=== PATIENT | male | born 1995 | race Caucasian/White ===

== ENCOUNTER 2022-07-28 02:03 | Emergency (ER) | payer SELFPAY ==
[2022-07-28] MEDS ORDERED: SODIUM CHLORIDE 0.9% 1,000 ML IV STA (02:30)
--- NOTE | 2022-07-28 02:32 | ED Physician Documentation ---
PD HPI BACK PAIN - Stated complaint Stated Complaint: KIDNEY STONE - Chief complaint Chief Complaint: Abd Pain - History obtained from History obtained from: Patient - History of Present Illness Timing - onset: Enter time (22:00), Today Timing - details: Abrupt onset Pain level max: 8 Pain level now: 2 Location: Right Quality: Pain, Similar to prior episodes Associated symptoms: No: Fever, Weakness, Numbness Improves with: Nothing Worsened by: Other (no exacerbating factors) Similar symptoms before: Diagnosis (similar to previous episode of renal colic (approximatey 1 year ago)) Recently seen: Not recently seen - Additional information Additional information: c/o sudden onset right flank and right upper paralumbar pain , onset at approximately 10 PM while at rest in hotel (visiting from [place]). Pain waxes and wanes, with n/v when pain is most intense. Pain has improved significantly prior to this evaluation (spontaneously). He feels this is very similar to renal colic he had approximately 1 year ago; he did not have a procedure for that episode. Review of Systems Constitutional: denies: Fever GI: reports: Nausea, Vomiting. denies: Abdominal Pain : denies: Dysuria, Frequency, Hematuria Skin: denies: Rash Musculoskeletal: reports: Back pain PD PAST MEDICAL HISTORY - Past Medical History Past Medical History: Yes : Kidney stones - Present Medications Home Medications: Ambulatory Orders Medication Instructions Recorded Confirmed Ondansetron Odt [Zofran] 4 mg TL Q6H PRN #14 tablet 07/28/22 Oxycodone HCl/Acetaminophen 1 - 2 each PO Q6H PRN #20 tablet 07/28/22 [Percocet 5-325 mg Tablet] Tamsulosin [Flomax] 0.4 mg PO DAILY #10 cap 07/28/22 - Allergies Allergies/Adverse Reactions: Allergies Allergy/AdvReac Type Severity Reaction Status Date / Time No Known Drug Allergies Allergy Verified 07/28/22 02:14 PD ED PE NORMAL - Vitals Vital signs reviewed: Yes - General General: Alert and oriented X 3, No acute distress, Well developed/nourished - Cardiac Cardiac: RRR, No murmur - Respiratory Respiratory: No respiratory distress, Clear bilaterally - Abdomen Abdomen: Soft, Non tender, Non distended - Back Back: No CVA TTP - Derm Derm: Normal color, Warm and dry, No rash Results - Vitals Vitals: Vital Signs - 24 hr 07/28/22 07/28/22 07/28/22 03:35 03:40 04:34 Temperature 36.5 C Heart Rate 56 L 56 L 62 Respiratory 18 16 16 Rate Blood Pressure 124/72 105/64 110/63 O2 Saturation 100 100 99 Oxygen O2 Source Room air - Labs Labs: Laboratory Tests 07/28/22 07/28/22 02:25 02:25 WBC 14.1 H RBC 4.80 Hgb 14.6 Hct 41.9 L MCV 87.3 MCH 30.4 MCHC 34.8 RDW 11.8 L Plt Count 251 MPV 10.8 Neut # (Auto) 10.7 H Lymph # (Auto) 2.2 [place] # (Auto) 0.9 Eos # (Auto) 0.2 Baso # (Auto) 0.1 Absolute Nucleated RBC 0.00 Nucleated RBC % 0.0 Sodium 139 Potassium 3.5 Chloride 101 Carbon Dioxide 28 Anion Gap 10.0 BUN 25 H Creatinine 0.9 Estimated GFR (MDRD) 101 Glucose 114 H Calcium 10.1 Total Bilirubin 0.7 AST 17 ALT 22 Alkaline Phosphatase 64 Total Protein 8.0 Albumin 5.0 Globulin 3.0 Albumin/Globulin Ratio 1.7 Lipase 24 - Rads (name of study) CT A/P Radiology: Prelim report reviewed, See rad report PD MEDICAL DECISION MAKING - ED course Complexity details: reviewed results, re-evaluated patient, considered differential, d/w patient ED course: presents with right flank pain consistent with renal colic. CT reveals 8mm right ureteral calculus. His pain had nearly resolved by the time of the initial evaluation tonight, given toradol for mild residual discomfort. Results d/w patient. He is given tamsulosin, with prescriptions for tamsulosin, percocet, and zofran. Return precautions discussed. Departure - Departure Disposition: 01 Home, Self Care Clinical Impression: Renal colic Condition: Good Instructions: ED Stone Renal W Colic Prescriptions: Tamsulosin [Flomax] 0.4 mg PO DAILY #10 cap Oxycodone HCl/Acetaminophen [Percocet 5-325 mg Tablet] 1 - 2 each PO Q6H PRN #20 tablet PRN Reason: pain Ondansetron Odt [Zofran] 4 mg TL Q6H PRN #14 tablet PRN Reason: Nausea / Vomiting Discharge Date/Time: 07/28/22 04:34
[2022-07-28 02:34] LABS: BASOPHILS # (AUTO) 0.1 10^3/uL (0.0-0.1); BASOPHILS % (AUTO) 0.4 %; EOSINOPHILS # (AUTO) 0.2 10^3/uL (0.0-0.7); EOSINOPHILS % (AUTO) 1.1 %; HCT - HEMATOCRIT 41.9 % (42.0-52.0); HGB - HEMOGLOBIN 14.6 g/dL (14.0-18.0); LYMPHOCYTES # (AUTO) 2.2 10^3/uL (1.5-3.5); LYMPHOCYTES % (AUTO) 15.9 %; MEAN CORPUSCULAR HEMOGLOBIN 30.4 pg (27.0-31.0); MEAN CORPUSCULAR HGB CONC 34.8 g/dL (32.0-36.0); MEAN CORPUSCULAR VOLUME 87.3 fL (80.0-94.0); MEAN PLATELET VOLUME 10.8 fL (7.4-11.4); MONOCYTES # (AUTO) 0.9 10^3/uL (0.0-1.0); MONOCYTES % (AUTO) 6.4 %; NEUTROPHILS # (AUTO) 10.7 10^3/uL (1.5-6.6); NEUTROPHILS % (AUTO) 75.8 %; PLT - PLATELET COUNT 251 10^3/uL (130-450); RED CELL DISTRIBUTION WIDTH 11.8 % (12.0-15.0); WHITE BLOOD COUNT 14.1 x10^3/uL (4.8-10.8)
[2022-07-28 02:46] LABS: ALBUMIN/GLOBULIN RATIO 1.7 (1.0-2.2); BILIRUBIN,TOTAL 0.7 mg/dL (0.2-1.0); CALCIUM 10.1 mg/dL (8.5-10.3); CREATININE 0.9 mg/dL (0.6-1.2); POTASSIUM 3.5 mmol/L (3.5-5.0)
[2022-07-28] MEDS ORDERED: ONDANSETRON 4 MG/2 ML VIAL IVP STA (02:55)
[2022-07-28] MEDS ORDERED: KETOROLAC 15 MG/ML VIAL IVP STA (02:55)
[2022-07-28] MEDS ORDERED: TAMSULOSIN 0.4 MG CAPSULE PO STA (03:48)
[2022-07-28 04:35] VITALS: BP 110/63
--- NOTE | 2022-07-28 09:53 | CT Report ---
PROCEDURE: Abdomen/Pelvis WO INDICATIONS: right flank pain TECHNIQUE: Noncontrast 5 mm thick sections acquired from the diaphragms to the symphysis. 5 mm coronal and sagi ttal reformats were then performed. For radiation dose reduction, the following was used: automated exposure control, adjustment of mA and/or kV according to patient size. COMPARISON: None. FINDINGS: Image quality: Excellent. ABDOMEN: Lung bases: Lung bases are clear. Heart size is normal. Solid organs: Liver and spleen are normal in size. Gallbladder appears normal without calcification or wall thickening. Pancreas is normal in contours. No adrenal nodules. Moderate right hydronephrosis and mild perinephric inflammation. Moderate right hydroureter and periu reteric inflammation. 0.8 x 0.7 cm calcification is present in the mid to distal right ureter, approx imately the level of S2. No other intrarenal, ureteral, or bladder calcifications seen. Peritoneum and bowel: Unenhanced bowel loops demonstrate normal wall thickness and caliber. Normal appendix. No free fluid or air. Nodes and vessels: No retroperitoneal or mesenteric adenopathy by size criteria. Aorta and inferior vena cava are normal in caliber. Miscellaneous: No ventral hernias. PELVIS: Genitourinary: Bladder wall thickness is normal. Miscellaneous: No inguinal hernias or adenopathy. Bones: No suspicious bony lesions. No vertebral body compression fractures. IMPRESSION: 1. 8 mm obstructing right distal ureteral calcification causing moderate hydroureteronephrosis. 2. Final interpretation concordant with preliminary report. Reviewed by: Danielle Anderson MD on 07/28/2022 9:51 AM PDT Approved by: Danielle Anderson MD on 07/28/2022 9:51 AM PDT Station ID: [id number]
== END 2022-07-28 04:34 | disposition home or self-care (01) ==
LOC: ED 02:03
DX: N23 Unspecified renal colic (principal)
CPT/HCPCS: 36415; 74176; 80053; 83690; 85025; 96374; 96375; 99283; 99284; A9270